=== PATIENT | female | born 1970 | race Caucasian/White ===

== ENCOUNTER 2017-12-11 13:05 | Emergency (ER) | payer BC ==
[~2017-12-11] VITALS: Ht 180.3 cm; Wt 90.0 kg
[~2017-12-11 13:05] MED LIST: AMOXIL500 MG OR; BENZONATATE200 MG PO; LEXAPRO10 MG PO; PREDNISONE20 MG PO; ZITHROMAX500 MG PO
[2017-12-11 14:50] LABS: HEMATOCRIT 43.4 % (37.0-47.0); HEMOGLOBIN 14.5 g/dl (12.0-16.0); IMMATURE GRANULOCYTES 0.6 % (0.0-5.0); MEAN CELL VOLUME 88.9 fL CALC (80.0-100.0); MEAN CORPUSCULAR HGB 29.7 pG CALC (26.0-32.0); MEAN CORPUSCULAR HGB CONC 33.4 g/L CALC (32.0-36.0); NEUT# 3.72 thou/uL (2.00-7.15); RED BLOOD COUNT 4.88 mill/uL (4.20-5.60); RED CELL DISTRI WIDTH 12.3 % (11.5-15.5)
[2017-12-11 15:04] LABS: ALBUMIN 4.6 g/dL (3.2-5.0); ALKALINE PHOSPHATASE 89 u/l (38-126); ANION GAP 16 (6-22 (CALC)); BILIRUBIN, TOTAL 0.9 mg/dL (0.0-1.4); BUN 10 mg/dL (7-17); BUN/CREATININE RATIO 15 (12-20 (CALC)); CARBON DIOXIDE 28 mmol/l (22-30); CHLORIDE 102 mmol/l (95-108); CREATININE 0.7 mg/dL (0.5-1.0); GFR > 60 ML/MIN (>=60 (CALC)); GFR FOR AFR.AMER. > 60 ML/MIN (>=60 (CALC)); POTASSIUM 3.8 mmol/l (3.5-5.1); SGOT/AST 27 u/l (14-36); SGPT/ALT 38 u/l (9-52); SODIUM 143 mmol/l (137-146); TOTAL PROTEIN 7.9 g/dL (6.3-8.2)
[2017-12-11 15:42] LABS: URINE BILIRUBIN - DIPSTICK NEGATIVE (NEGATIVE); URINE BLOOD DIPSTICK NEGATIVE (NEGATIVE); URINE COLOR YELLOW; URINE GLUCOSE - DIPSTICK NEGATIVE (NEGATIVE); URINE KETONE NEGATIVE (NEGATIVE); URINE LEUK ESTERASE NEGATIVE (NEGATIVE); URINE PH 6.5 (4.5-8.0); URINE PROTEIN - DIPSTICK NEGATIVE (NEG-TRACE); URINE SPECIFIC GRAVITY <=1.005; URINE UROBILINOGEN - DIPSTICK 0.2 E.U./dL (0.2)
[2017-12-11 15:46] LABS: BARBITURATES NEGATIVE (NEGATIVE); COCAINE NEGATIVE (NEGATIVE); METHADONE NEGATIVE (NEGATIVE); OXCYCODONE NEGATIVE (NEGATIVE); TETRAHYDROCANNABIONOL NEGATIVE (NEGATIVE); TRICYLIC ANTIDEPRESSANTS NEGATIVE (NEGATIVE)
[2017-12-11 15:47] LABS: URINE CLARITY CLEAR; URINE NITRITE - DIPSTICK POSITIVE (Negative)
[2017-12-11 15:52] LABS: URINE BACTERIA MODERATE hpf; URINE RBC 0-2 RBC/hpf (0-5); URINE SQUAMOUS EPITHELIAL CELL FEW EPI/hpf (0-FEW); URINE WBC 0-2 WBC/hpf (0-5)
[2017-12-11] MEDS ORDERED: BUPROPION HCL300 MG PO (15:53)
[2017-12-11] MEDS ORDERED: AMLODIPINE5 MG PO (16:11)
[2017-12-11 16:25] VITALS: BP 133/88
== END 2017-12-11 16:30 | disposition home or self-care (01) | DRG 305 ==
LOC: ED 13:05
DX: I10 Essential (primary) hypertension (principal)

== ENCOUNTER 2017-12-16 13:31 | Observation (INO) | payer BC ==
[~2017-12-16] VITALS: Ht 180.3 cm; Wt 90.5 kg
[~2017-12-16 13:31] MED LIST changes: +AMLODIPINE5 MG PO; +BUPROPION HCL300 MG PO; +CEPHALEXIN500 M1 PO
[2017-12-16 14:30] LABS: HEMATOCRIT 43.9 % (37.0-47.0); HEMOGLOBIN 14.7 g/dl (12.0-16.0); IMMATURE GRANULOCYTES 0.5 % (0.0-5.0); MEAN CELL VOLUME 89.2 fL CALC (80.0-100.0); MEAN CORPUSCULAR HGB 29.9 pG CALC (26.0-32.0); MEAN CORPUSCULAR HGB CONC 33.5 g/L CALC (32.0-36.0); NEUT# 6.01 thou/uL (2.00-7.15); RED BLOOD COUNT 4.92 mill/uL (4.20-5.60); RED CELL DISTRI WIDTH 12.4 % (11.5-15.5)
[2017-12-16 14:41] LABS: ANION GAP 16 (6-22 (CALC)); BUN 16 mg/dL (7-17); BUN/CREATININE RATIO 22 (12-20 (CALC)); CARBON DIOXIDE 23 mmol/l (22-30); CHLORIDE 105 mmol/l (95-108); CREATININE 0.7 mg/dL (0.5-1.0); GFR > 60 ML/MIN (>=60 (CALC)); GFR FOR AFR.AMER. > 60 ML/MIN (>=60 (CALC)); POTASSIUM 4.3 mmol/l (3.5-5.1); SODIUM 141 mmol/l (137-146)
[2017-12-16] MEDS ORDERED: LOSARTAN POT50 MG PO (15:44)
[2017-12-16] MEDS ORDERED: ALPRAZOLAM0.5 MG PO (15:45)
[2017-12-16] MEDS ORDERED: AMOXICILLIN500 MG PO (15:46)
[2017-12-16] MEDS ORDERED: FLOVENT DI50 MCG/BLI NAB (15:49)
[2017-12-16] MEDS ORDERED: CIPRODEX1 ML OT (15:50)
[2017-12-16 16:46] VITALS: BP 150/95
[2017-12-16 18:00] LABS: URINE BILIRUBIN - DIPSTICK NEGATIVE (NEGATIVE); URINE BLOOD DIPSTICK NEGATIVE (NEGATIVE); URINE CLARITY CLEAR; URINE COLOR YELLOW; URINE GLUCOSE - DIPSTICK NEGATIVE (NEGATIVE); URINE KETONE NEGATIVE (NEGATIVE); URINE LEUK ESTERASE NEGATIVE (NEGATIVE); URINE NITRITE - DIPSTICK NEGATIVE (Negative); URINE PROTEIN - DIPSTICK NEGATIVE (NEG-TRACE); URINE UROBILINOGEN - DIPSTICK 0.2 E.U./dL (0.2)
[2017-12-16 20:24] VITALS: BP 125/81
[2017-12-17] VITALS: BP 108/71
[2017-12-17 01:00] VITALS: BP 148/93
[2017-12-17 04:38] VITALS: BP 117/75
[2017-12-17 08:13] VITALS: BP 144/80
[2017-12-17 08:39] VITALS: BP 144/80
[2017-12-17] MEDS ORDERED: HYZAAR1 TA1 PO (13:31)
[2017-12-17] MEDS ORDERED: AUGMENTIN875TAB PO (13:46)
== END 2017-12-17 14:19 | disposition home or self-care (01) | DRG 313 ==
LOC: ED 13:31 → ED-I 15:50 → ED 16:04 → MS2 16:05
PROVIDERS: Family Medicine; ADMIT General Practice; ATTEND General Practice
DX: R07.89 Other chest pain (principal); N39.0 Urinary tract infection, site not specified; H66.93 Otitis media, unspecified, bilateral; I10 Essential (primary) hypertension; F41.9 Anxiety disorder, unspecified
CPT/HCPCS: G0378; J1650

== ENCOUNTER 2018-01-25 22:40 | Emergency (ER) | payer BC ==
[~2018-01-25] VITALS: Ht 180.3 cm; Wt 91.4 kg
[~2018-01-25 22:40] MED LIST changes: +ALPRAZOLAM0.5 MG PO; +AMOXICILLIN500 MG PO; +AUGMENTIN875TAB PO; +CIPRODEX1 ML OT; +FLOVENT DI50 MCG/BLI NAB; +HYZAAR1 TA1 PO; +LOSARTAN POT50 MG PO
[2018-01-26] MEDS ORDERED: METO50TA52 PO (00:17)
[2018-01-26 00:47] VITALS: BP 136/71
== END 2018-01-26 00:52 | disposition home or self-care (01) | DRG 552 ==
LOC: ED 22:40
DX: S16.1XXA Strain of muscle, fascia and tendon at neck level, initial encounter (principal); I10 Essential (primary) hypertension; X58.XXXA Exposure to other specified factors, initial encounter

== ENCOUNTER 2019-05-21 | Emergency (ER) | payer BC ==
[~2019-05-21] MED LIST changes: +METO50TA52 PO
[2019-05-21] MEDS ORDERED: BP (05:55)
[2019-05-21] MEDS ORDERED: ROBITUSSIN AC10 ML PO ×2 (06:47→06:53)
[2019-05-21] MEDS ORDERED: TAM75CAP PO (06:47)
== END 2019-05-21 07:01 | disposition home or self-care (01) | DRG 153 ==
DX: J11.1 Influenza due to unidentified influenza virus with other respiratory manifestations (principal); I10 Essential (primary) hypertension

== ENCOUNTER 2019-06-21 | Emergency (ER) | payer BC ==
[~2019-06-21] MED LIST changes: +BP; +ROBITUSSIN AC10 ML PO; +TAM75CAP PO
[2019-06-21] MEDS ORDERED: SYNALAR CREAM0.025 % TOP (03:44)
[2019-06-21 03:45] LABS: URINE BILIRUBIN - DIPSTICK NEGATIVE (NEGATIVE); URINE CLARITY CLEAR; URINE COLOR YELLOW; URINE GLUCOSE - DIPSTICK NEGATIVE (NEGATIVE); URINE KETONE NEGATIVE (NEGATIVE); URINE LEUK ESTERASE SMALL (Negative); URINE NITRITE - DIPSTICK NEGATIVE (Negative); URINE PH 6.5 (4.5-8.0); URINE PROTEIN - DIPSTICK NEGATIVE (NEG-TRACE); URINE SPECIFIC GRAVITY 1.015; URINE UROBILINOGEN - DIPSTICK 0.2 E.U./dL (0.2)
[2019-06-21 03:56] LABS: URINE BLOOD DIPSTICK NEGATIVE (NEGATIVE)
[2019-06-21 03:57] LABS: URINE BACTERIA FEW hpf; URINE EPITHELIAL CELLS FEW EPI/hpf (0-FEW); URINE RBC 0-2 RBC/hpf (0-5)
[2019-06-21] MEDS ORDERED: CIPROFLOXACIN500 M1 PO (04:32)
== END 2019-06-21 05:00 | disposition home or self-care (01) | DRG 758 ==
PROVIDERS: Emergency Medicine
DX: N76.0 Acute vaginitis (principal); N39.0 Urinary tract infection, site not specified; I10 Essential (primary) hypertension

== ENCOUNTER 2022-02-14 07:55 | Day surgery (SDC) | payer BC ==
[~2022-02-14] VITALS: Ht 175.3 cm; Wt 97.5 kg
[~2022-02-14 07:55] MED LIST changes: +CIPROFLOXACIN500 M1 PO; +DIOVAN HC1 PO; +FLONASE AL50 MCG/ACT IN; +PROZAC10 MG PO; +SYNALAR CREAM0.025 % TOP
[2022-02-14 10:03] VITALS: BP 140/92
== END 2022-02-14 10:12 | disposition home or self-care (01) | DRG 951 ==
LOC: ENDO 07:55
PROVIDERS: ATTEND Internal Medicine Gastroenterology
PROC: 0DJD8ZZ Inspection of Lower Intestinal Tract, Via Natural or Artificial Opening Endoscopic (ICD-10-PCS; principal; 2022-02-14)
DX: Z12.11 Encounter for screening for malignant neoplasm of colon (principal); K64.8 Other hemorrhoids; Z80.0 Family history of malignant neoplasm of digestive organs

== ENCOUNTER 2022-07-20 20:27 | Emergency (ER) | payer BC ==
[~2022-07-20] VITALS: Ht 175.3 cm; Wt 99.7 kg
[2022-07-20] VITALS (7 sets, daily range): BP systolic 128–153; BP diastolic 72–90
[2022-07-20 21:56] LABS: BASO% 0.1 % (0-3); EOS% 0.5 % (0-8); HEMATOCRIT 43.3 % (37.0-47.0); HEMOGLOBIN 14.1 g/dl (12.0-16.0); IMMATURE GRANULOCYTES 0.1 % (0.0-5.0); LYMPH% 9.4 % (15-41); MEAN CELL VOLUME 84.4 fL CALC (80.0-100.0); MEAN CORPUSCULAR HGB 27.5 pG CALC (26.0-32.0); MEAN CORPUSCULAR HGB CONC 32.6 g/dL CAL (32.0-36.0); MONO% 3.6 % (2-13); NEUT# 7.38 thou/uL (2.00-7.15); NEUT% 86.3 % (42-76); RED BLOOD COUNT 5.13 mill/uL (4.20-5.60)
[2022-07-20 22:08] LABS: ALBUMIN 4.7 g/dL (3.2-5.0); ALKALINE PHOSPHATASE 73 u/l (38-126); ANION GAP 14 (6-22 (CALC)); BILIRUBIN, TOTAL 0.8 mg/dL (0.02-1.3); BUN 17 mg/dL (7-17); BUN/CREATININE RATIO 26 (12-20 (CALC)); CARBON DIOXIDE 26 mmol/l (22-30); CHLORIDE 102 mmol/l (95-108); CREATININE 0.7 mg/dL (0.5-1.0); GFR FOR AFR.AMER. > 60 ML/MIN (>=60 (CALC)); GFR OTHER RACES > 60 ML/MIN (>=60 (CALC)); SGOT/AST 29 u/l (14-36); SODIUM 138 mmol/l (137-146); TOTAL PROTEIN 8.1 g/dL (6.3-8.2)
[2022-07-21 00:15] VITALS: BP 139/79
[2022-07-21] MEDS ORDERED: IMODIUM2 MG PO (01:16)
[2022-07-21 01:38] VITALS: BP 163/101
== END 2022-07-21 01:59 | disposition home or self-care (01) | DRG 392 ==
LOC: ED 20:27
PROVIDERS: Family Medicine
DX: A08.11 Acute gastroenteropathy due to Norwalk agent (principal); I10 Essential (primary) hypertension